=== PATIENT | female | born 1970 | race Two or more races ===

== ENCOUNTER 2018-11-04 02:17 | Emergency (ER) | payer OTHER ==
[2018-11-04] MEDS ORDERED: ALBUTEROL SULFATE 2.5 MG/3 ML ONE (02:53)
== END 2018-11-04 02:47 ==
LOC: ED 02:41
DX: J45.909 Unspecified asthma, uncomplicated (principal); Z53.21 Procedure and treatment not carried out due to patient leaving prior to being seen by health care provider